=== PATIENT | female | born 1945 | race Caucasian/White ===

== ENCOUNTER 2019-07-18 15:17 | Emergency (ER) | payer MEDICARE, OTHER, MEDICAID | END 2019-07-18 15:36 | disposition home or self-care (01) | LOC: E/R 15:36 | DX: S60.465A Insect bite (nonvenomous) of left ring finger, initial encounter (principal); L08.9 Local infection of the skin and subcutaneous tissue, unspecified; W57.XXXA Bitten or stung by nonvenomous insect and other nonvenomous arthropods, initial encounter; Y92.9 Unspecified place or not applicable | CPT/HCPCS: 99282 ==

== ENCOUNTER 2019-07-22 17:25 | Emergency (ER) | payer MEDICARE, OTHER ==
[2019-07-22] MEDS: DEXAMETHASONE 10 MG/ML 1 ML INJ IV (18:28)
[2019-07-22] MEDS: CEFTRIAXONE 1 GM/50 ML (PMX) 50 ML IVPB (18:29)
== END 2019-07-22 19:20 | disposition home or self-care (01) ==
LOC: FTE 17:25
DX: L03.012 Cellulitis of left finger (principal); I10 Essential (primary) hypertension; E11.9 Type 2 diabetes mellitus without complications
CPT/HCPCS: 96365; 96375; 99284-25